=== PATIENT | female | born 1955 | race Caucasian/White ===

== ENCOUNTER 2017-04-19 08:16 | Day surgery (SDC) | payer OTHER ==
[2015-08-20 10:25] VITALS: BMI 26.6
[2017-04-19] MEDS ORDERED: Propofol 10 mg/ml Inj (20 ML) ONE (11:19)
[2017-04-19] MEDS ORDERED: Lidocaine Hydrochloride 5 ML INJ ONE (12:10)
[2017-04-19 12:16] VITALS: O2SAT 100
[2017-04-19 13:29] VITALS: BP 145/75; PULSE 66; RESP 16; TEMP 97
== END 2017-04-19 13:10 | disposition home or self-care (01) ==
LOC: C.ENDO 08:16
PROVIDERS: ATTEND Internal Medicine Gastroenterology
DX: Z12.11 Encounter for screening for malignant neoplasm of colon (principal); K21.9 Gastro-esophageal reflux disease without esophagitis; K59.00 Constipation, unspecified; D12.4 Benign neoplasm of descending colon; K57.30 Diverticulosis of large intestine without perforation or abscess without bleeding; K29.70 Gastritis, unspecified, without bleeding
CPT/HCPCS: 43239; 45385; 88305; 88342; J2704

== ENCOUNTER 2017-08-08 12:25 | Emergency (ER) | payer MEDICAID, OTHER ==
[2017-08-08 12:26] VITALS: BMI 26.6
--- NOTE | 2017-08-08 13:26 | C.PDOC ---
History Of Present Illness 62 year old female with a PMHx of HTN and thyroid issue presents to the ED with complaints of body aches, dry cough, headache, subjective fever, decreased appetite for 3 days. Patient reports symptoms worsened yesterday. Patient denies sick contacts, ear pain, sore throat, chest pain, shortness of breath, neck stiffness, vomiting, diarrhea, neck stiffness, or other complaints at this time. Time Seen by Provider: 08/08/17 12:42 Chief Complaint (Nursing): Flu-like Symptoms History Per: Patient History/Exam Limitations: no limitations Onset/Duration Of Symptoms: Days (3 days), Worse Since (yesterday) Current Symptoms Are (Timing): Still Present Location Of Pain: Diffuse Myalgias, Headache Associated Symptoms: Fever (subjective), Cough, Myalgias. denies: Chills, Sore Throat, Neck Pain, Nausea, Vomiting, Diarrhea Ear Symptoms: Bilateral: None Recent travel outside of the [place]: No Additional History Per: Family Past Medical History Reviewed: Historical Data, Nursing Documentation, Vital Signs Vital Signs: Last Vital Signs Temp 98.9 F 08/08/17 13:44 Pulse 87 08/08/17 13:44 Resp 18 08/08/17 13:44 BP 121/78 08/08/17 13:44 Pulse Ox 97 08/08/17 13:44 - Medical History PMH: Graves' Disease, HTN, Hyperlipidemia, Hyperthyroidism Family History: States: Unknown Family Hx - Social History Hx Tobacco Use: No Hx Alcohol Use: No Hx Substance Use: No - Immunization History Hx Tetanus Toxoid Vaccination: No Hx Influenza Vaccination: No Hx Pneumococcal Vaccination: No Review Of Systems Constitutional: Positive for: Fever, Weakness, Other (generalized myalgias, decreased appetite). Negative for: Chills ENT: Negative for: Ear Pain, Throat Pain Cardiovascular: Negative for: Chest Pain, Palpitations Respiratory: Positive for: Cough. Negative for: Shortness of Breath Gastrointestinal: Negative for: Nausea, Vomiting, Abdominal Pain, Diarrhea Musculoskeletal: Negative for: Neck Pain Skin: Negative for: Rash Neurological: Positive for: Headache Physical Exam - Physical Exam Appears: Non-toxic, No Acute Distress Skin: Warm, Dry, No Rash Eye(s): bilateral: Normal Inspection, PERRL, EOMI Ear(s): Bilateral: Normal Nose: Normal, No Discharge Oral Mucosa: Moist Throat: Normal, No Erythema, No Exudate Neck: Normal ROM, Supple, Other (no meningeal sign's) Chest: Symmetrical, No Deformity Cardiovascular: Rhythm Regular, No Murmur Respiratory: No Rales, No Rhonchi, No Wheezing, Other (clear to auscultation bilaterally ) Gastrointestinal/Abdominal: Soft, No Tenderness, No Distention, No Guarding, No Rebound Extremity: Normal ROM, No Tenderness Neurological/Psych: Oriented x3 ED Course And Treatment O2 Sat by Pulse Oximetry: 99 (RA) Pulse Ox Interpretation: Normal Progress Note: Flu swab was ordered. Disposition Counseled Patient/Family Regarding: Studies Performed, Diagnosis, Need For Followup, Rx Given - Disposition Referrals: Adolfo Johnson MD [Staff Provider] - Disposition: HOME/ ROUTINE Disposition Time: 13:50 Condition: STABLE Additional Instructions: Por favor, nissa ms lquidos shahnaz t, agua, gatorade, sopas. [place] Tylenol 650 mg por va oral cada 4 horas para aki corporales y aki de phillip. [place] Tamiflu segn las indicaciones; esto ayuda a disminuir la duracin de los s ntomas. Reg a tu mdico en unos steve. Please drink increased fluids such as tea, water, gatorade, soups. Take Tylenol 650 mg by mouth every 4 hours for body aches and headaches. Take Tamiflu as directed; this helps to decrease the length of symptoms. Fiollow up with your doctor in a few days. Prescriptions: Acetaminophen [Tylenol 325mg tab] 650 mg PO Q4 #50 tab Oseltamivir Phosphate [Tamiflu] 75 mg PO BID #10 capsule Instructions: Influenza (ED) Forms: Gen Discharge Inst [place] Islander, Payteller ([place] Islander) Print Language: SINHALA - Clinical Impression Clinical Impression: Influenza-like illness - PA / SENIOR DATA INTEGRATION DEVELOPER / Resident Statement MD/DO has reviewed & agrees with the documentation as recorded. - Scribe Statement The provider has reviewed the documentation as recorded by the Scribe Jacqueline Morales All medical record entries made by the Scribe were at my direction and personally dictated by me. I have reviewed the chart and agree that the record accurately reflects my personal performance of the history, physical exam, medical decision making, and the department course for this patient. I have also personally directed, reviewed, and agree with the discharge instructions and disposition.
--- NOTE | 2017-08-08 13:34 | C.PDOC ---
Time Seen by Provider: 08/08/17 12:42 Chief Complaint (Nursing): Flu-like Symptoms Past Medical History Vital Signs: Last Vital Signs Temp 99.8 F H 08/08/17 12:31 Pulse 99 H 08/08/17 12:31 Resp 20 08/08/17 12:31 BP 115/75 08/08/17 12:31 Pulse Ox 99 08/08/17 12:31 - Medical History PMH: Graves' Disease, HTN, Hyperlipidemia, Hyperthyroidism Denies: Chronic Kidney Disease Family History: States: Unknown Family Hx - Social History Hx Tobacco Use: No Hx Alcohol Use: No Hx Substance Use: No - Immunization History Hx Tetanus Toxoid Vaccination: No Hx Influenza Vaccination: No Hx Pneumococcal Vaccination: No ED Course And Treatment O2 Sat by Pulse Oximetry: 99 Medical Decision Making Medical Decision Making: pt with flu like symptoms x 3 days, no sick contacts,. no flu vaccine this year. pt sts unable to take nsaids due to stomach issues. influenza a/b swab neg, however, given pt's symptoms, will treat with tamiflu. Disposition Counseled Patient/Family Regarding: Studies Performed, Diagnosis, Need For Followup, Rx Given - Disposition Referrals: Adolfo Johnson MD [Staff Provider] - Disposition: HOME/ ROUTINE Disposition Time: 13:24 Condition: STABLE Additional Instructions: Por favor, nissa ms lquidos shahnaz t, agua, gatorade, sopas. [place] Tylenol 650 mg por va oral cada 4 horas para aki corporales y aki de phillip. [place] Tamiflu segn las indicaciones; esto ayuda a disminuir la duracin de los s ntomas. Reg a tu mdico en unos steve. Please drink increased fluids such as tea, water, gatorade, soups. Take Tylenol 650 mg by mouth every 4 hours for body aches and headaches. Take Tamiflu as directed; this helps to decrease the length of symptoms. Fiollow up with your doctor in a few days. Prescriptions: Acetaminophen [Tylenol 325mg tab] 650 mg PO Q4 #50 tab Oseltamivir Phosphate [Tamiflu] 75 mg PO BID #10 capsule Instructions: Influenza (ED) Forms: Gen Discharge Inst Bulgarian, [facility] (Bulgarian) - Clinical Impression Clinical Impression: Influenza-like illness
[2017-08-08 13:47] VITALS: BP 121/78; PULSE 87; RESP 18; TEMP 98.9
[2017-08-09 16:55] VITALS: O2SAT 99
== END 2017-08-08 13:51 | disposition home or self-care (01) ==
LOC: C.ER 12:25
DX: J11.1 Influenza due to unidentified influenza virus with other respiratory manifestations (principal)

== ENCOUNTER 2018-08-11 11:15 | Emergency (ER) | payer MEDICAID, OTHER ==
[2018-08-11 11:15] VITALS: BMI 26.6
[2018-08-11 12:20] LABS: BASO # 0.1 K/uL (0.0-0.2); BASO % 1.3 % (0.0-2.0); EOS # 0.1 K/uL (0.0-0.7); EOS % 1.5 % (0.0-4.0); HEMOGLOBIN 13.6 g/dL (11.0-16.0); LYMPH # 1.7 K/uL (1.0-4.3); LYMPH % 29.7 % (20.0-40.0); MEAN CELL VOLUME 88.8 fL (81.0-99.0); MEAN CORPUSCULAR HEMOGLOBIN 28.6 pg (27.0-31.0); MEAN CORPUSCULAR HGB CONC 32.3 g/dL (33.0-37.0); MEAN PLATELET VOLUME 9.9 fL (7.2-11.7); MONO # 0.6 K/uL (0.0-0.8); MONO % 10.8 % (0.0-10.0); NEUT # 3.2 K/uL (1.8-7.0); NEUT % 56.7 % (50.0-75.0); RBC 4.74 Mil/uL (3.80-5.20); RED CELL DISTRIBUTION WIDTH 14.6 % (11.5-14.5); WHITE BLOOD COUNT 5.6 K/uL (4.8-10.8)
[2018-08-11] MEDS ORDERED: Sodium Chloride 0.9% 1,000 ML IV STA (12:26)
[2018-08-11] MEDS ORDERED: Sodium Chloride 0.9% 1,000 ML ONE (12:27)
[2018-08-11 12:34] LABS: ALB/GLOB RATIO 1.4 (1.0-2.1); ALBUMIN 4.7 g/dL (3.5-5.0); ALT/SGPT 22 U/L (9-52); AST/SGOT 41 U/L (14-36); BLOOD UREA NITROGEN 12 mg/dL (7-17); CALCIUM 9.4 mg/dl (8.6-10.4); GFR NON-AFRICAN AMERICAN > 60
--- NOTE | 2018-08-11 13:25 | C.PDOC ---
History Of Present Illness 63yo female, with history of hypertension, thyroidectomy, comes to ER reporting cough and congestion x 3 days. Patient reports associated fever, bodyaches and headache as well. She otherwise denies any chest pain or shortness of breath. Patient offers no additional complaints. Time Seen by Provider: 08/11/18 11:38 Chief Complaint (Nursing): Flu-like Symptoms History Per: Patient History/Exam Limitations: no limitations Onset/Duration Of Symptoms: Days Current Symptoms Are (Timing): Still Present Location Of Pain: Sinus/es, Diffuse Myalgias, Headache Associated Symptoms: Fever, Cough, Nasal Congestion Additional History Per: Patient Past Medical History Reviewed: Historical Data, Nursing Documentation, Vital Signs Vital Signs: Last Vital Signs Temp 98.2 F 08/11/18 11:26 Pulse 90 08/11/18 11:26 Resp 21 08/11/18 11:26 BP 143/87 08/11/18 11:26 Pulse Ox 98 08/11/18 11:26 - Medical History PMH: Graves' Disease, HTN, Hyperlipidemia, Hyperthyroidism Denies: Chronic Kidney Disease Surgical History: No Surg Hx Family History: States: Unknown Family Hx - Social History Hx Tobacco Use: No Hx Alcohol Use: No Hx Substance Use: No - Immunization History Hx Tetanus Toxoid Vaccination: No Hx Influenza Vaccination: No Hx Pneumococcal Vaccination: No Review Of Systems Except As Marked, All Systems Reviewed And Found Negative. Constitutional: Positive for: Fever, Chills, Malaise ENT: Positive for: Nose Congestion Cardiovascular: Negative for: Chest Pain Respiratory: Positive for: Cough Gastrointestinal: Negative for: Vomiting Physical Exam - Physical Exam Appears: Non-toxic Skin: Normal Color, Warm, No Rash Head: Atraumatic, Normacephalic Eye(s): bilateral: Normal Inspection, PERRL, EOMI Ear(s): Bilateral: Normal Nose: Normal, No Flaring Oral Mucosa: Moist Throat: No Erythema, No Exudate Neck: Normal ROM, Supple Chest: Symmetrical Cardiovascular: Rhythm Regular, No Friction Rub, No Murmur Respiratory: Normal Breath Sounds, No Rales, No Rhonchi, No Stridor, No Wheezing Gastrointestinal/Abdominal: Normal Exam, Soft, No Tenderness Back: Normal Inspection, No CVA Tenderness Extremity: Normal ROM, No Swelling Neurological/Psych: Oriented x3, Normal Speech, Normal Motor Gait: Steady ED Course And Treatment - Laboratory Results Result Diagrams: 08/11/18 12:16 08/11/18 12:16 Lab Results: Total Bilirubin 0.5 mg/dL (0.2-1.3) 08/11/18 12:16 AST 41 U/L (14-36) H 08/11/18 12:16 ALT 22 U/L (9-52) 08/11/18 12:16 Alkaline Phosphatase 87 U/L (38-126) 08/11/18 12:16 Total Protein 8.1 g/dL (6.3-8.3) 08/11/18 12:16 Albumin 4.7 g/dL (3.5-5.0) 08/11/18 12:16 Globulin 3.4 gm/dL (2.2-3.9) 08/11/18 12:16 Albumin/Globulin Ratio 1.4 (1.0-2.1) 08/11/18 12:16 O2 Sat by Pulse Oximetry: 98 (RA) Pulse Ox Interpretation: Normal Medical Decision Making Medical Decision [place] female with influenza like symptoms Plan: -- Rapid flu -- CXR -- Urinalysis -- IV fluids On re-exam, the patient reports improvement of symptoms. Lungs are CTA, heart is RRR, abdomen is soft, non-tender and tolerating PO well. Ambulatory in the ED with steady gait. Follow up with the medical doctor within 1-2 days, return if worsened. Disposition - Disposition Referrals: Adolfo Johnson MD [Staff Provider] - Disposition: HOME/ ROUTINE Disposition Time: 14:15 Condition: STABLE Additional Instructions: Follow up with the medical doctor within 1-2 days, return if worsened. Prescriptions: Azithromycin [Zithromax] 250 mg PO DAILY #6 tab Benzonatate 200 mg PO TID PRN #30 capsule PRN Reason: Cough predniSONE [Prednisone] 20 mg PO BID #10 tab Instructions: Acute Bronchitis Forms: [facility] (Togolese) Print Language: POLISH - Clinical Impression Clinical Impression: Acute bronchitis - PA / QA AUTOMATION ENGINEER / Resident Statement MD/DO has reviewed & agrees with the documentation as recorded. - Scribe Statement The provider has reviewed the documentation as recorded by the Cassandra Palma Provider Attestation: All medical record entries made by the Cassandra were at my direction and personally dictated by me. I have reviewed the chart and agree that the record accurately reflects my personal performance of the history, physical exam, medical decision making, and the department course for this patient. I have also personally directed, reviewed, and agree with the discharge instructions and disposition.
--- NOTE | 2018-08-11 13:45 | RAD ---
Date of service: 08/11/2018 HISTORY: SOB, cough COMPARISON: 08/13/2015 TECHNIQUE: Chest PA and lateral FINDINGS: LUNGS: No active pulmonary disease. PLEURA: No significant pleural effusion identified. No pneumothorax apparent. CARDIOVASCULAR: No aortic atherosclerotic calcification present. Tortuous thoracic aorta-similar appearing Normal cardiac size. No pulmonary vascular congestion. OSSEOUS STRUCTURES: No significant abnormalities. VISUALIZED UPPER ABDOMEN: Normal. OTHER FINDINGS: None. IMPRESSION: No active disease. No interval pathology noted.
[2018-08-11 14:02] VITALS: BP 133/83; PULSE 78; RESP 19; TEMP 98.6
[2018-08-11 14:06] LABS: SQUAMOUS EPITHIAL 1 /hpf (0-5); URINE AMORPHOUS SEDIMENT RARE /ul (<OCC); URINE BACTERIA RARE (<OCC); URINE BILIRUBIN NEGATIVE (NEGATIVE); URINE BLOOD NEGATIVE (NEGATIVE); URINE CLARITY Hazy (Clear); URINE COLOR Yellow (YELLOW); URINE GLUCOSE (UA) NORMAL (Normal); URINE LEUKOCYTE ESTERASE NEG Leu/uL (Negative); URINE PROTEIN NEGATIVE (NEGATIVE); URINE UROBILINOGEN NORMAL mg/dL (0.2-1.0)
[2018-08-11 14:18] VITALS: O2SAT 98
== END 2018-08-11 14:50 | disposition home or self-care (01) ==
LOC: C.ER 11:15
DX: J20.9 Acute bronchitis, unspecified (principal)
CPT/HCPCS: 71046; 80053; 81001; 85025; 87086; 87804; 96360; 99285; J7030